=== PATIENT | female | born 2000 | race Two or more races ===

== ENCOUNTER 2022-06-20 10:32 | Emergency (ER) | payer MEDICAID, OTHER ==
[~2022-06-20] VITALS: Ht 157.5 cm; Wt 44.5 kg
[2022-06-20 11:49] VITALS: BP 128/88
[2022-06-20] MEDS ORDERED: ONDA-144 PO (11:50)
[2022-06-20] MEDS ORDERED: ONDANSETRON ODT 4 MG TAB PO ONE (12:00)
== END 2022-06-20 12:01 | disposition home or self-care (01) ==
LOC: ER 10:32
DX: R11.2 Nausea with vomiting, unspecified (principal); Z79.899 Other long term (current) drug therapy
CPT/HCPCS: 99283; Q0162